=== PATIENT | male | born 1950 | race Caucasian/White ===

== ENCOUNTER → 2020-10-23 13:43 | Outpatient (CLI) | payer MEDICARE, SELFPAY ==
[2017-03-29 22:23] VITALS: BMI 22.4
[2020-10-23 15:23] LABS: PSA,Total- Diagnostic 8.76 ng/mL (0.0-4.0)
== END ==
PROVIDERS: Referring Provider Urology; Visit Provider Urology
DX: C61 Malignant neoplasm of prostate (principal)
CPT/HCPCS: 36415; 84153

== ENCOUNTER → 2020-12-15 13:41 | Outpatient (CLI) | payer MEDICARE, SELFPAY ==
[2017-03-29 22:23] VITALS: BMI 22.4
[2020-12-15 16:15] LABS: PSA,Total- Diagnostic 9.42 ng/mL (0.0-4.0)
== END ==
PROVIDERS: Referring Provider Urology; Visit Provider Urology
DX: R97.20 Elevated prostate specific antigen [PSA] (principal)
CPT/HCPCS: 36415; 84153

== ENCOUNTER 2024-09-11 17:31 | Emergency (ER) | payer MEDICARE, SELFPAY ==
[2024-09-11 17:32] VITALS: BP 140/79; PULSE 74; RESP 18; TEMP 36.5; O2SAT 98; BMI 22.8
--- NOTE | 2024-09-11 17:50 | RAD_ITS ---
PROCEDURE: CHEST 1 VIEW (PORTABLE) 09/11/2024 REASON FOR EXAM: SHORTNESS OF BREATH TECHNIQUE: Frontal view of the chest. COMPARISON: None FINDINGS: Hardware: None Heart: The heart size is normal. Lungs: The lungs are clear. Bones: The bones are unremarkable. Other: RAD/Chest 1 View (Portable) IMPRESSION: No Acute Findings. Reading Location: [facility]
--- NOTE | 2024-09-11 17:50 | EKG12_ITS ---
Test Reason : WEAKNESS Blood Pressure : */* mmHG Vent. Rate : 64 BPM Atrial Rate : 64 BPM P-R Int : 166 ms QRS Dur : 84 ms QT Int : 404 ms P-R-T Axes : 43 -2 64 degrees QTcB Int : 416 ms Normal sinus rhythm Normal ECG Confirmed by JENY BLANCO, ADELIA ([id number]), editor at large KELLIE ROBLEDO ([id number]) on 09/13/2024 6:01:29 AM Referred By: Confirmed By: ADELIA FERMIN MD
--- NOTE | 2024-09-11 17:51 | EX.ED.DYSGE1 ---
HPI History of Present Illness Chief Complaint: Weakness Narrative Narrative: 74-year-old male past medical history of chronic left leg pain and sepsis in 2013 presents with generalized weakness and reported low pulse ox that he experienced about an hour ago. He states that he lives at home alone, and was working outside. He went upstairs to his bedroom to change close, and he felt very lightheaded. He states that for a brief second he may have lost vision and felt very weak and tired. He looked at his [employer] application and he reportedly had a pulse ox in the 80s. He denies any chest pain, or shortness of breath, no recent fevers or chills, no cough. He wanted to go to urgent care, but they were closed. He had his neighbor take him, but they presented here because of the reported low pulse ox. He states that he is feeling improved currently, and that when they checked him in triage his pulse ox was 98% on room air. He may feel slightly weak. He denies any recent dysuria or hematuria, no exacerbating or alleviating symptoms. PFSH PFSH Home Medications ?Medication ?Instructions ?Recorded ?Last Taken ?Type hydrocodone-acetaminophen 5-325mg 1 tab PO Q6H PRN PRN Pain ##4 03/17/17 Unknown Rx 5mg-325mg Allergy/AdvReac Type Severity Reaction Status Date / Time No Known Allergies Allergy Verified 09/11/24 17:36 Social History Smoking Status: Current every day smoker tobacco type: cigarettes ROS ROS ED ROS Narrative Review of systems positive for near-syncopal episode, reported low pulse ox in the 80s. No headache, no chest pain, no shortness of breath, no fevers or chills, no problems with urination. EXAM Physical Exam Narrative Exam Narrative: Afebrile. Vital signs noted. Nontoxic-appearing. Cardiovascular examination reveals a regular rate and rhythm. Lungs are clear to auscultation bilaterally. No wheezing or stridor. Abdomen soft nontender without guarding or rebound. Positive bowel sounds. Neurological examination shows him to be awake, alert, oriented, nonfocal, nonlateralizing. Const Vital Signs: 09/11/24 17:32 09/11/24 17:41 09/11/24 18:41 Temperature 97.7 F L Temperature Source Oral Pulse Rate 74 76 Pulse Rate [Lying] Pulse Rate [Sitting (for 1 minute prior to obtaining)] Pulse Rate [Standing (for 1 minute prior to obtaining)] Respiratory Rate 18 18 Respiratory Effort Normal Non-Labored Blood Pressure 140/79 H 137/72 H Blood Pressure [Lying] Blood Pressure [Sitting (for 1 minute prior to obtaining)] Blood Pressure [Standing (for 1 minute prior to obtaining)] Blood Pressure Mean 99 93 Blood Pressure Mean [Lying] Blood Pressure Mean [Sitting (for 1 minute prior to obtaining)] Blood Pressure Mean [Standing (for 1 minute prior to obtaining)] Pulse Ox 98 99 Oxygen Delivery Method Room Air 09/11/24 18:56 09/11/24 19:00 09/11/24 20:00 Temperature Temperature Source Pulse Rate 57 L 58 L Pulse Rate [Lying] 56 L Pulse Rate [Sitting (for 1 minute prior to obtaining)] 67 Pulse Rate [Standing (for 1 minute prior to obtaining)] 80 Respiratory Rate 18 18 Respiratory Effort Blood Pressure 139/68 H 131/69 H Blood Pressure [Lying] 130/64 H Blood Pressure [Sitting (for 1 minute prior to obtaining)] 133/65 H Blood Pressure [Standing (for 1 minute prior to obtaining)] 136/79 H Blood Pressure Mean 91 89 Blood Pressure Mean [Lying] 86 Blood Pressure Mean [Sitting (for 1 minute prior to obtaining)] 87 Blood Pressure Mean [Standing (for 1 minute prior to obtaining)] 98 Pulse Ox 100 100 Oxygen Delivery Method Room Air Room Air 09/11/24 20:01 Temperature 97.7 F L Temperature Source Pulse Rate 58 L Pulse Rate [Lying] Pulse Rate [Sitting (for 1 minute prior to obtaining)] Pulse Rate [Standing (for 1 minute prior to obtaining)] Respiratory Rate 18 Respiratory Effort Blood Pressure 131/69 H Blood Pressure [Lying] Blood Pressure [Sitting (for 1 minute prior to obtaining)] Blood Pressure [Standing (for 1 minute prior to obtaining)] Blood Pressure Mean 89 Blood Pressure Mean [Lying] Blood Pressure Mean [Sitting (for 1 minute prior to obtaining)] Blood Pressure Mean [Standing (for 1 minute prior to obtaining)] Pulse Ox 58 Oxygen Delivery Method MDM MDM MDM Narrative Medical decision making narrative: Differential diagnosis includes but not limited to pneumonia versus pneumothorax versus intravascular volume depletion versus dehydration versus other electrolyte imbalance. I have low suspicion for ACS as is not having chest pain. He will be bolused normal saline, orthostatics obtained, and basic laboratory checked as well as chest x-ray to rule out pneumonia and urinalysis to rule out an infection. I have low suspicion for sepsis because he is not really meeting any SIRS criteria currently. He may have had a false reading on his device reporting low pulse ox. I reviewed his laboratory work and he has normal white count of 9.7 with hemoglobin 13.5, hematocrit 39.5 with platelet count 240. Electrolyte panel grossly unremarkable, creatinine slightly elevated at 1.52 today when compared to previous of 1.2 on prior laboratories. LFTs are grossly unremarkable. Chest x-ray in 1 view interpreted by myself independently shows no evidence of an acute process, no pneumonia or pneumothorax. I am not sure why and reportedly had a low pulse ox but is currently 100% on room air. He was able to ambulate to the bathroom to give a urine sample with his cane. EKG was obtained and interpreted by myself independently as normal sinus rhythm at 64 bpm without ectopy or acute ST changes. No STEMI. QTc normal at 416 ms. At this point in time, regardless of what his urinalysis shows, I do feel that he can be discharged to follow-up with a primary care provider. I did review his urinalysis that is negative for infection. I do not feel antibiotics are indicated. He had negative ketones as well. He is motivated for discharge and states he is ready to go home. History & Record Review Discussion w/independent historian: Patient Lab Data Attestation: I reviewed the patient's lab results. Labs: Laboratory Results - last 24 hr 09/11/24 09/11/24 18:03 19:35 WBC 9.7 RBC 4.37 L Hgb 13.5 Hct 39.5 L MCV 90.4 MCH 30.9 MCHC 34.2 RDW Std Deviation 44.7 H RDW Coeff of [place] 13.3 Plt Count 240 MPV 9.4 Immature Gran % (Auto) 0.200 Neut % (Auto) 63.9 Lymph % (Auto) 27.9 Wilson % (Auto) 4.0 Eos % (Auto) 3.5 Baso % (Auto) 0.5 Absolute Neuts (auto) 6.2 Absolute Lymphs (auto) 2.69 Nucleated RBC % 0 Sodium 136 Potassium 4.0 Chloride 102 Carbon Dioxide 22.2 Anion Gap 12 BUN 17 Creatinine 1.52 H Estim Creat Clear Calc 47.46 L Est GFR (MDRD) Non-Af 48 L BUN/Creatinine Ratio 11.2 Glucose 107 H Calcium 9.0 Total Bilirubin 0.38 AST 31 ALT 16 Alkaline Phosphatase 79 Total Protein 7.5 Albumin 4.2 Globulin 3.3 Albumin/Globulin Ratio 1.3 Urine Color STRAW Urine Clarity Clear Urine pH 7.0 Ur Specific [place] 1.010 Urine Protein Negative Urine Glucose (UA) Normal Urine Ketones Negative Urine Occult Blood Negative Urine Nitrite Negative Urine Bilirubin Negative Urine Urobilinogen Normal Ur Leukocyte Esterase 25 H Urine RBC 0 SEEN Urine WBC 0-5 SEEN Ur Squamous Epith Cells 0-5 SEEN Urine Bacteria 1+ Urine Mucus 0 SEEN Radiography Chest X-Ray - ED: 1 View, Read by ED Physician, Read by Radiologist and Normal Diagnostic Testing: Clinical Impression(s) from Imaging Studies Chest X-Ray 09/11/24 17:50 IMPRESSION: No Acute Findings. Reading Location: [facility] Discharge Plan Triage Chief Complaint: Weakness ED Provider: Jarred Ding Dx/Rx/DC Orders Clinical Impression: Near syncope, Generalized weakness Instructions: ED Near-Fainting, Uncertain Cause, ED Weakness Uncertain Cause Prescriptions: No Action hydrocodone-acetaminophen 1 TABLET tablet 1 tab PO Q6H PRN PRN (Reason: Pain) Qty: 4 0RF Primary Care Provider: Care Physician,No Primary Referrals: Naye Pradhan, DO [Non-Staff] - 3-5 Days if not improving Activity Restrictions/Additional Instructions: Drink plenty of oral fluids. Return with syncope, new or worsening symptoms. Follow-up with a primary care provider in the next 3 to 5 days if not improving. Print Language: Sami Disposition Disposition: Home, Self Care
[2024-09-11] MEDS: 0.9% Normal Saline (1000mL) 1,000 ML 999 ML IV (18:02)
[2024-09-11 18:08] LABS: Absolute Lymphocyte Count 2.69 X10^3/uL (0.83-4.51); Absolute Neutrophil Count 6.2 X10^3/uL (2.0-7.7); Basophil# 0.05 X10^3/uL; Basophil% 0.5 % (0-1); Eosinophil# 0.34 X10^3/uL; Eosinophils% 3.5 % (0-5); Hematocrit 39.5 % (40-54); Hemoglobin 13.5 g/dL (13.0-16.5); Lymphocyte # 2.69 X10^3/ul (0.83-4.51); Lymphocyte % 27.9 % (19-41); Mean Corp Hgb Conc 34.2 g/dL (32-36); Mean Corpuscular Hgb 30.9 pg (27.0-32.0); Mean Corpuscular Volume 90.4 fL (80-94); Mean Platelet Vol. 9.4 fl (6.2-12.0); Monocyte# 0.39 X10^3/uL; NRBC Flagged by Analyzer 0 % (0-5); Neutrophil # 6.16 X10^3/uL (2.7-7.7); Neutrophil % 63.9 % (47-70); Platelet Count 240 K/mm3 (150-450); RBC Distribution Width CV 13.3 % (11.6-14.6); RBC Distribution Width SD 44.7 fl (35.1-43.9); Red Blood Count 4.37 M/mm3 (4.6-6.2); White Blood Count 9.7 K/mm3 (4.4-11.0)
[2024-09-11 18:34] LABS: ALB/GLOB Ratio 1.3 RATIO (0.9-2.4); AST(SGOT) 31 U/L (<=37); Alanine Aminotransfer ALT/SGPT 16 U/L (<=46); Albumin, Serum 4.2 g/dL (3.4-4.8); Alkaline Phosphatase 79 U/L (40-129); Anion Gap 12 (5-15); BUN 17 mg/dL (4-19); BUN/Creat Ratio 11.2 RATIO (10-20); Carbon Dioxide 22.2 mmol/L (21.0-32.0); Chloride 102 mmol/L (98-108); Creatinine, Serum 1.52 mg/dL (0.70-1.20); EST Glomerular Filtration Rate 48 (>60); Estimated Creatinine Clearance 47.46 ml/min (50-250); Globulin 3.3 g/dL (2.2-4.2); Glucose 107 mg/dL (70-99); Protein, Total 7.5 g/dL (5.9-8.4); Sodium Level 136 mmol/L (133-145); Total Bilirubin 0.38 mg/dL (0.00-1.30)
[2024-09-11 18:41] VITALS: BP 137/72; PULSE 76; RESP 18; O2SAT 99
[2024-09-11 18:56] VITALS: BP 130/64; BP 133/65; BP 136/79; PULSE 56; PULSE 67; PULSE 80
[2024-09-11 19:00] VITALS: BP 139/68; PULSE 57; RESP 18; O2SAT 100
[2024-09-11 19:42] LABS: Mucous, Urine 0 SEEN /hpf (<or=2+); Red Blood Cells-Urine 0 SEEN /hpf (0-5)
[2024-09-11 19:47] LABS: Glucose, Dipstick Normal (Normal); Ketone-Dipstick Negative (Negative); Leukocyte Esterase-Dipstick 25 /ul (Negative); Nitrite-Dipstick Negative (Negative); Occult Blood-Urine Negative /ul (Negative); Protein-Dipstick Negative (Negative); Urine Bilirubin Dipstick Negative (Negative); Urine Clarity Clear (Clear); Urine Urobilinogen Normal (Normal)
[2024-09-11 19:53] LABS: Color, Urine STRAW (Yellow)
[2024-09-11 19:55] LABS: Bacteria 1+ /hpf (None Seen); Squamous Epithelial Cells - UA 0-5 SEEN /hpf (0-5); White Blood Cells 0-5 SEEN /hpf (0-5)
[2024-09-11 20:00] VITALS: BP 131/69; PULSE 58; RESP 18; O2SAT 100
[2024-09-11 20:01] VITALS: BP 131/69; PULSE 58; RESP 18; TEMP 36.5; O2SAT 58
== END 2024-09-11 20:14 | disposition home or self-care (01) ==
PROVIDERS: Emergency Provider Emergency Medicine; Visit Provider Emergency Medicine
DX: R53.1 Weakness (principal); R55 Syncope and collapse; F17.210 Nicotine dependence, cigarettes, uncomplicated
CPT/HCPCS: 71045; 80053; 81001; 85025; 93005; 96360; 96361; 99285; A4216

== ENCOUNTER 2025-06-06 17:46 | Emergency (ER) | payer MEDICARE, SELFPAY ==
[2025-06-06 17:47] VITALS: BP 170/105; PULSE 87; RESP 16; TEMP 36.6; O2SAT 99
--- NOTE | 2025-06-06 18:28 | EDS_ITS ---
HPI History of Present Illness Chief Complaint: Dizziness [facility] Medical History (Updated 06/06/25 @ 19:25 by Royer Spear) Hx of sepsis Pancreatitis Home Medications ?Medication ?Instructions ?Recorded ?Last Taken ?Type oxycodone myristate 36 mg capsule 36 mg PO Q12.TCU Unknown History sprinkle extended release 12hr(DON'T CRUSH) (Xtampza ER) tamsulosin 0.4 mg capsule 0.4 mg PO DAILY 06/06/25 Unk nown History Allergy/AdvReac Type Severity Reaction Status Date / Time No Known Allergies Allergy Verified 06/06/25 17:50 Surgical History (Updated 06/06/25 @ 19:25 by Royer Spear) History of artificial eye lens Hx of hernia repair Hx of cholecystectomy Social History Smoking Status: Current every day smoker tobacco type: cigarettes EXAM Physical Exam Const Vital Signs: 06/06/25 17:47 06/06/25 19:47 06/06/25 21:00 Temperature 97.9 F Temperature Source Oral Pulse Rate 87 60 77 Respiratory Rate 16 16 17 Blood Pressure 170/105 H 156/63 H 125/74 H Blood Pressure Mean 126 94 91 Pulse Ox 99 100 98 Oxygen Delivery Method Room Air Room Air Room Air MDM MDM MDM Narrative Medical decision making narrative: HISTORY OF PRESENT ILLNESS: Chief complaint: Dizziness 74-year-old male presents with dizziness. Concern he may be septic. He notes he felt similar last time he was diagnosed with sepsis 4 years ago. He notes dizziness upon standing. He notes the room spins when he lays down. Denies cough, fever or chills. Denies rashes. Chronic wound to left lower extremity which he follows with wound care for. Denies abdominal pain or vomiting denies diarrhea. Denies chest pain, palpitations. Denies headache or neck pain REVIEW OF SYSTEMS: Pertinent positives: Dizziness Pertinent negatives: As per HPI PHYSICAL EXAM: Nursing triage notes reviewed, Vital signs reviewed Constitutional: please see mdm HENT: MMM Eyes: Pupils equal round and reactive to light, Extraocular muscles intact Neck: No stridor, no JVD, full neck ROM Lungs: Clear to auscultation, No wheezing or rales. No increased work of breathing, no conversational dyspnea, no accessory muscle use, no nasal flaring. No respiratory distress noted Heart: Regular rate and rhythm, No murmurs, No rubs and No gallops, 2+ distal pulses (radial, femoral, posterior tibial) in all extremities Abdomen: Soft, there is no tenderness, rigidity, rebound or guarding, no obvious peritoneal signs, no palpable pulsatile abdominal masses, no auscultated abdominal bruit : No CVAT Extremities: No edema Neuro: Alert and oriented x3, neuro exam at baseline, cranial nerves II through XII are intact. No pain with extraocular muscle movement. There is negative test of skew. 5 of 5 strength in upper and lower extremities in flexion e xtension. Intact sensation to light touch in upper and lower extremity dermatomes. No truncal or extremity ataxia. No dysdiadochokinesia. Normal gait. 2+ reflexes in upper and lower extremities. No meningeal signs. Negative Babinski. NIH of 0. Skin: No rash or lesions noted MEDICAL DECISION MAKING: Chief Complaint: please see HPI External records reviewed: Reviewed prior ED visit Factors affecting care: history of sepsis Social determinants of health: Elderly, lives alone History obtained from others: none Consults: none [facility] Narrative: Patient was initially hemodynamically stable, afebrile and nontoxic-appearing. Exam without focal neurologic deficits. No stigmata of infection on exam. No lateralizing findings. NIH of 0. Patient was able to ambulate here with a st yaima gait. I considered the following differential diagnosis: ICH, dehydration, arrhythmia, ACS, anemia, COVID/RSV/flu, electrolyte disturbance, ABEL I obtained to further determine if the patient was suffering from a life- threatening etiology. Initially assessed the patient with 500 cc normal saline bolus ALL IMAGES (IF OBTAINED) HAVE BEEN PERSONALLY REVIEWED AND INTERPRETED BY MYSELF. EKG with normal sinus rhythm rate of 62, normal axis, normal intervals, no STEMI I have personally reviewed the patient's chest x-ray. Chest x-ray is unremarkable for pulmonary edema, pneumothorax, pneumonia or focal cardiopulmonary abnormality. CT scan of the brain shows no evidence of ICH Lactate is wnl indicating no end-organ hypoperfusion and/or hypoxia. High-sensitivity troponin is negative, no evidence of myocardial ischemia CBC without leukocytosis, severe anemia, no thrombocytopenia. BMP without evidence of significant electrolyte abnormalities, no anion gap, no acute kidney injury. Urinalysis shows no evidence of urinary inflammation suggestive of UTI COVID/flu/RSV The synthesis of the patient's history, physical exam, labs images suggest no acute life or objective etiology the patient's vitals were stable. His labs are unremarkable. No signs of sepsis, stroke, posterior circulation CVA, infectious or metabolic cephalopathy. Patient ambulatory here without significant ataxia with his home assistive device (cane). Patient is a appropriate for discharge home. The patient and/or family, caregivers express understanding. The patient and/or family, caregivers agrees with the plan. Shared decision making: I will have a discussion with the patient and or visitors regarding risk/benefits of further testing or admission. They will be made aware of of the risk/benefits inherent in this decision they will be given the opportunity to voice understanding. Total critical care time today provided was at least 0 minutes. This excludes separately billable procedures. Critical care time (if documented) is secondary to the patient having high probability of clinically significant/life threatening deterioration in the patient's condition which required my urgent intervention. Impression: 1. Dizziness 2. Dehydration Dispo: Discharge home This note was generated with [employer] dictation software. It may contain incorrect words, spelling, and punctuation that were not noted in review of the chart prior to signing. Lab Data Labs: Laboratory Results - last 24 hr 06/06/25 06/06/25 19:00 20:18 WBC 9.4 RBC 4.59 L Hgb 13.9 Hct 41.9 MCV 91.3 MCH 30.3 MCHC 33.2 RDW Std Deviation 45.8 H RDW Coeff of Rosa Maria 13.5 Plt Count 242 MPV 9.6 Sodium 137 Potassium 4.8 Chloride 104 Carbon Dioxide 22.9 Anion Gap 10 BUN 15 Creatinine 1.35 H Est GFR (MDRD) Non-Af 56 L BUN/Creatinine Ratio 10.8 Glucose 106 H Lactic Acid 1.0 Calcium 9.6 Troponin T High Sens 10 Urine Color Yellow Urine Clarity Clear Urine pH 6.0 Ur Specific [place] 1.015 Urine Protein Negative Urine Glucose (UA) Normal Urine Ketones Negative Urine Occult Blood Negative Urine Nitrite Negative Urine Bilirubin Negative Urine Urobilinogen Normal Ur Leukocyte Esterase 100 H Radiography Diagnostic Testing: Clinical Impression(s) from Imaging Studies Chest X-Ray 06/06/25 18:37 IMPRESSION: No acute pulmonary disease. Reading Location: [facility] Brain CT 06/06/25 19:10 IMPRESSION: 1. No acute intracranial abnormality. 2. Mild parenchymal volume loss and chronic microangiopathic changes. 3. Chronic lacunar infarcts in the basal ganglia and right cerebellar hemisphere. Reading Location: [facility] Discharge Plan Triage Chief Complaint: Dizziness ED Provider: Poli Ordonez Dx/Rx/DC Orders Instructions: ED Dizziness, Uncertain Cause Prescriptions: No Action tamsulosin 0.4 mg capsule 0.4 mg PO DAILY Xtampza ER 36 mg cap,sprinkl,ER12hr(DONT CRUSH) 36 mg PO Q12.TCU Primary Care Provider: Care Physician,No Primary Referrals: Aris Mckee MD [Med Staff - Active Staff, [facility]] Activity Restrictions/Additional Instructions: Thank you for trusting us with your care today! Your labs images are reassuring. There is no sign of sepsis. Please take Tylenol (2 pills, 650 mg), ibuprofen (2 pills, 400 mg) every 6 hours as needed for pain and fever control. Please return to the emergency department if your symptoms change or worsen. Please follow with your primary care physician for further outpatient evaluation and management. Print Language: Belarusian Disposition Disposition: Home, Self Care
--- NOTE | 2025-06-06 18:37 | RAD_ITS ---
PROCEDURE: CHEST 1 VIEW (PORTABLE) 06/06/2025 REASON FOR EXAM: COUGH TECHNIQUE: Frontal view of the chest. COMPARISON: 09/11/2024 FINDINGS: Lungs/Pleura: Clear. Heart/Mediastinum: Normal in size. Bones/Soft tissues: Mild degenerative changes of the spine and AC joints. RAD/Chest 1 View (Portable) IMPRESSION: No acute pulmonary disease. Reading Location: [id number]
--- NOTE | 2025-06-06 18:43 | EKG12_ITS ---
Test Reason : DIZZINESS Blood Pressure : */* mmHG Vent. Rate : 62 BPM Atrial Rate : 62 BPM P-R Int : 150 ms QRS Dur : 90 ms QT Int : 398 ms P-R-T Axes : 20 10 63 degrees QTcB Int : 403 ms Normal sinus rhythm Normal ECG Confirmed by Luis Pabon ([id number]), brands editor KELLIE ROBLEDO ([id number]) on 06/10/2025 6:42:26 AM Referred By: TA Confirmed By: Luis Pabon
--- NOTE | 2025-06-06 19:10 | CT_ITS ---
PROCEDURE: CT BRAIN/HEAD WITHOUT CONTRAST 06/06/2025 REASON FOR EXAM: DIZZINESS TECHNIQUE: Procedure Code: CTBR Modality: CT Procedure: BRAIN/HEAD WITHOUT CONTRAST Coronal and Sagittal reconstruction series were provided. One or more dose reduction techniques were used (e.g., Automated exposure control, adjustment of the mA and/or kV according to patient size, use of iterative reconstruction technique. RADIATION DOSE SUMMARY: CTDlvol: 44.99 mGy DLP: 829.85 mGycm COMPARISON: None. FINDINGS: No acute intracranial hemorrhage, extra-axial collection, mass effect or evidence of acute infarct. Mild generalized brain parenchymal volume loss and chronic microangiopathic changes. Small foci of chronic lacunar infarcts in the left basal ganglia and right cerebellar hemisphere. Absent [place] ocular lenses. Intact skull base and calvarium. Well-aerated paranasal sinuses and mastoid air cells. CT/Brain/Head without Contrast IMPRESSION: 1. No acute intracranial abnormality. 2. Mild parenchymal volume loss and chronic microangiopathic changes. 3. Chronic lacunar infarcts in the basal ganglia and right cerebellar hemispher e. Reading Location: [id number]
[2025-06-06] MEDS: 0.9% Normal Saline (500mL Bag) 500 ML 1000 ML IV (19:23)
[2025-06-06 19:39] LABS: Hematocrit 41.9 % (40-54); Hemoglobin 13.9 g/dL (13.0-16.5); Mean Corp Hgb Conc 33.2 g/dL (32-36); Mean Corpuscular Volume 91.3 fL (80-94); Mean Platelet Vol. 9.6 fl (6.2-12.0); Platelet Count 242 K/mm3 (150-450); RBC Distribution Width CV 13.5 % (11.6-14.6); RBC Distribution Width SD 45.8 fl (35.1-43.9); Red Blood Count 4.59 M/mm3 (4.6-6.2); White Blood Count 9.4 K/mm3 (4.4-11.0)
[2025-06-06 19:47] VITALS: BP 156/63; PULSE 60; RESP 16; O2SAT 100
[2025-06-06 20:07] LABS: Anion Gap 10 (7-18); BUN 15 mg/dL (4-19); BUN/Creat Ratio 10.8 RATIO (10-20); Calcium,Total 9.6 mg/dL (7.6-11.0); Carbon Dioxide 22.9 mmol/L (20.0-29.0); Chloride 104 mmol/L (96-106); Glucose 106 mg/dL (70-99); Potassium 4.8 mmol/L (3.5-5.1); Troponin T High Sensitivity 10 ng/L (<=22)
[2025-06-06 20:45] LABS: Color, Urine Yellow (Yellow); Glucose, Dipstick Normal (Normal); Ketone-Dipstick Negative (Negative); Leukocyte Esterase-Dipstick 100 /ul (Negative); Nitrite-Dipstick Negative (Negative); Occult Blood-Urine Negative /ul (Negative); Protein-Dipstick Negative (Negative); Specific Gravity, Urine 1.015 (1.002-1.030); Urine Bilirubin Dipstick Negative (Negative)
[2025-06-06 21:00] VITALS: BP 125/74; PULSE 77; RESP 17; O2SAT 98
[2025-06-06 22:46] LABS: Mucous, Urine 1+ /hpf (<or=2+); Red Blood Cells-Urine 0-5 SEEN /hpf (0-5); Squamous Epithelial Cells - UA 0-5 SEEN /hpf (0-5)
[2025-06-06 22:51] LABS: Transitional Epithelial - Ur 0-5 SEEN /hpf (0-5)
[2025-06-06 22:55] VITALS: BP 119/71; PULSE 68; RESP 18; TEMP 36.6; O2SAT 100
== END 2025-06-06 23:10 | disposition home or self-care (01) ==
PROVIDERS: Emergency Provider Emergency Medicine; Visit Provider Emergency Medicine
DX: R42 Dizziness and giddiness (principal); E86.0 Dehydration; F17.210 Nicotine dependence, cigarettes, uncomplicated
CPT/HCPCS: 70450; 71045; 80048; 81001; 83605; 84484; 85027; 87631; 93005; 96360; 99283; A4216